=== PATIENT | female | born 1975 | race Caucasian/White ===

== ENCOUNTER 2020-04-21 03:04 | Inpatient (IN) | payer BC, OTHER ==
[~2020-04-21] VITALS: Ht 167.6 cm; Wt 75.0 kg
[2020-04-21] VITALS (17 sets, daily range): BP systolic 145–187; BP diastolic 65–109
[2020-04-21] MEDS ORDERED: ondansetron/PF 4mg/2ml inj IV ONE (03:15)
[2020-04-21] MEDS ORDERED: morphine 4 MG/ML inj SYRINge IV ONE (03:15)
[2020-04-21] MEDS ORDERED: normal saline 1000ML IV soln IVB ONE (03:15)
[2020-04-21 03:24] LABS: BASOPHILS # (AUTO) 0.1 X10'3 (0-0.2); BASOPHILS % (AUTO) 0.5 % (0-1); EOSINOPHILS # (AUTO) 0.2 X10'3 (0-0.9); EOSINOPHILS % (AUTO) 1.6 % (0-6); HEMATOCRIT 43.9 % (35.0-45.0); HEMOGLOBIN 14.9 g/dl (12.0-16.0); LYMPHOCYTES # (AUTO) 3.2 X10'3 (1.1-4.8); LYMPHOCYTES % (AUTO) 28.2 % (21-51); MEAN CORPUSCULAR HEMOGLOBIN 34.9 PG (27.0-31.0); MEAN CORPUSCULAR HGB CONC 33.9 g/dL (33.0-36.5); MEAN CORPUSCULAR VOLUME 102.9 FL (78-98); MEAN PLATELET VOLUME 7.9 FL (7.4-10.4); MONOCYTES # (AUTO) 1.2 X10'3 (0-0.9); MONOCYTES % (AUTO) 10.5 % (2-12); NEUTROPHILS # (AUTO) 6.8 X10'3 (1.8-7.7); NEUTROPHILS % (AUTO) 59.2 % (42-75); PLATELET COUNT 385 X10'3 (140-440); RED BLOOD COUNT 4.26 X10'6 (4.20-5.60); RED CELL DISTRIBUTION WIDTH 16.4 % (11.5-14.5); WHITE BLOOD COUNT 11.5 X10'3 (4.5-11.0)
[2020-04-21] MEDS ORDERED: heparin 25,000 UNIT/250ml bag 250 ML IV SCH (03:30)
[2020-04-21] MEDS ORDERED: heparin 10,000 units/1 ML INJ IV ONE ×3 (03:30→03:45)
[2020-04-21] MEDS: morphine 2 MG/ML inj. syringe IV PRN ×4 (03:34→07:31)
[2020-04-21 03:35] LABS: ALANINE AMINOTRANSFERASE 67 U/L (12-78); ALBUMIN 2.7 G/DL (3.4-5.0); ALBUMIN/GLOBULIN RATIO 0.7 (1.1-1.5); ALKALINE PHOSPHATASE 225 IU/L (46-116); ANION GAP 12 (8-16); ASPARTATE AMINO TRANSFERASE 97 U/L (10-37); BILIRUBIN,TOTAL 1.2 MG/DL (0.1-1.0); BLOOD UREA NITROGEN 2 MG/DL (7-18); BUN/CREATININE RATIO 2.9 (6.6-38.0); CALCIUM 7.9 MG/DL (8.5-10.1); CHLORIDE 104 MMOL/L (99-107); CREATININE 0.69 MG/DL (0.40-0.90); GLUCOSE 99 MG/DL (70-104); SODIUM 139 MMOL/L (135-145); TOTAL CARBON DIOXIDE 22.6 MMOL/L (24-32); TOTAL PROTEIN 6.6 G/DL (6.4-8.2); eGFR > 90 ML/MIN
[2020-04-21 03:38] LABS: PARTIAL THROMBOPLASTIN TIME 31 SECONDS (22-32); POTASSIUM 2.5 MMOL/L (3.5-5.1)
[2020-04-21] MEDS ORDERED: LORazepam 2 mg/ml vial IV ONE (03:55)
[2020-04-21] MEDS ORDERED: tPA-cathflo 2mg/2ml IV flush 4 MG in normal saline 100ml IV soln 100 ML ICATH SCH (04:30)
[2020-04-21] MEDS: heparin 1,000 UNITS/NS 500ml 500 ML IV SCH ×4 (04:30→19:00)
--- NOTE | 2020-04-21 04:54 | NUR ---
patient taken to IR
[2020-04-21] MEDS ORDERED: LIDOcaine 1%/PF 5ML 10 MG/ML VIAL ONE (05:02)
[2020-04-21] MEDS ORDERED: iohexol 300mg/ml 100ml inj. ONE (05:02)
[2020-04-21] MEDS ORDERED: heparin 1,000 UNITS/NS 500ml 500 ML ONE (05:02)
[2020-04-21] MEDS ORDERED: midazolam 2 mg/2 ml injection ONE ×2 (05:05→05:34)
[2020-04-21] MEDS ORDERED: fentaNYL/PF 50MCG/1 ML 2ML syringe ONE ×2 (05:06→05:34)
[2020-04-21] MEDS ORDERED: hydrALAZINE 20mg/ml inj. IV ONE (05:47)
[2020-04-21] MEDS ORDERED: morphine/NS 5 mg/ml CADD 100 ML IV SCH ×2 (07:15→07:20)
[2020-04-21] MEDS ORDERED: CADD PCA waste documentation MC PRN (07:25)
[2020-04-21] MEDS ORDERED: morphine/NS 5 mg/ml CADD 50 ML IV SCH (07:25)
[2020-04-21] MEDS ORDERED: naloxone 0.4 mg/ml inj IV PRN (07:25)
--- NOTE | 2020-04-21 07:45 | NUR ---
Patient with right groin sheath intact, patient very restless secondary to pain. Leg immobilizer placed on leg for safety. Orders for Morphine hr representative per Dr Hansen. given iv Morphine for pain per orders so far with no relief of pain 01/22. Left leg with absent pulses with doppler, mottled and cold. Heparin and tpa running via sheath access at ordered rates.
[2020-04-21] MEDS ORDERED: magnesium Cl slow-release 64mg tablet PO PRN (08:25)
[2020-04-21] MEDS ORDERED: magnesium 4gm in 100ml NS 100 ML IV PRN (08:25)
[2020-04-21] MEDS ORDERED: potassium Cl 20 mEq SR tablet PO PRN ×2 (08:25)
--- NOTE | 2020-04-21 08:27 | NUR ---
K level rechecked prior to replacement, returned at 3.0. Replacement per protocol per Dr Hansen
[2020-04-21] MEDS: potassium Cl 40MEQ/1/2NS 520ml 520 ML IV PRN ×2 (09:00→13:40)
[2020-04-21] MEDS: morphine/NS 5 mg/ml CADD 50 ML IV SCH ×8 (09:12→23:00)
[2020-04-21] MEDS ORDERED: LORazepam 2 mg/ml vial IV PRN (10:05)
[2020-04-21] MEDS ORDERED: haloperidol 5mg tablet PO PRN (10:05)
[2020-04-21] MEDS ORDERED: thiamine inj. 100 MG, MVI, adult No.4 with vit. K 10 ML in dextrose 5% water 500ml 500 ML IV SCH ×3 (10:05)
[2020-04-21] MEDS ORDERED: thiamine inj. 100 MG in normal saline 100ml IV soln 100 ML IV ONE (10:05)
[2020-04-21] MEDS ORDERED: haloperidol lactate 5mg/ml inj IM PRN (10:05)
[2020-04-21] MEDS: nicotine 21mg patch - 24 hr TD SCH (11:26)
[2020-04-21 11:36] LABS: HEMATOCRIT 40.9 % (35.0-45.0); MEAN CORPUSCULAR HEMOGLOBIN 35.6 PG (27.0-31.0); MEAN CORPUSCULAR HGB CONC 34.2 g/dL (33.0-36.5); MEAN CORPUSCULAR VOLUME 104.1 FL (78-98); MEAN PLATELET VOLUME 7.7 FL (7.4-10.4); PLATELET COUNT 345 X10'3 (140-440); RED BLOOD COUNT 3.93 X10'6 (4.20-5.60); RED CELL DISTRIBUTION WIDTH 16.8 % (11.5-14.5); WHITE BLOOD COUNT 11.5 X10'3 (4.5-11.0)
[2020-04-21 11:51] LABS: MAGNESIUM 1.3 MG/DL (1.5-2.4); POTASSIUM 3.9 MMOL/L (3.5-5.1)
[2020-04-21] MEDS ORDERED: NO HOME MEDS (13:05)
[2020-04-21] MEDS: folic acid 1mg/0.2ml inj IV SCH (13:34)
[2020-04-21] MEDS: tPA-cathflo 2mg/2ml IV flush 4 MG in normal saline 100ml IV soln 100 ML ICATH SCH ×2 (15:48→22:39)
[2020-04-21] MEDS: cloNIDine 0.1 mg tablet PO SCH ×2 (16:39→21:10)
--- NOTE | 2020-04-21 19:00 | NUR ---
REPORT RECEIVED FROM GLEN PRABHAKAR. PATIENT WITH SLIGT HTN, INCREASING AGITATION/RESTLESS/ ANXIOUS. MILD - MOD TREMORS OF HANDS. PATIENT IS IMPULSIVE AND DIFFICULT TO SIT STILL, STOP TOUCHING IV LINES, BENDING AT WASTE ETC ETC. CADD INSTRUCTIONS REVIEWED. PAIN APPEARS TO BE UNDER CONTROL. ETOH HISTORY - HALDOL GIVEN PER ORDER. PATIENT AGREES THAT SHE IS ANXIOUS AND RESTLESS. WILLINGLY TAKES THE HALDOL po PER ORDER. SUPPORT GIVEN. RIGHT FEM SITE IS CDI, SOFT, NO HEMATOMA. RIGHT KNEE IMMOBILIZER ON. + PALPABLE PULSE RLE. LLE BEST PULSE IS POPLITEAL WITH DOPPLER. L FOOT IS MOTTLED AND COOL. NO DISTRESS WITH BREATHING, LITTLE APPETITE - MODERATE ASSISTANCE DUE TO FLAT AND AGITATED/RESTLESS. BARELY ANY OF THE TRAY. DRINKS SPRITE WITH NO PROBLEMS. TPA IS INFUSING AT 6.25 ML/HR [0.25 MG/HR] VIA RIGHT FEM SHEATH. HEPARIN IS INFUSING 40 ML/HR [80 UNITS/HR) ALSO RIGHT SHEATH. PATIENT IS IN VIEW OF RN AT ALL TIMES. NEEDS FREQUENT REMINDING TO STOP TOUCHING/REARRANGING LINES, BENDING AT WASTE. TURNED FOR 2 RN SKIN CHECK/ CDI - UNREMARKABLE. MRSA NARES SENT TO LAB. BACK WASHED AND NEW LINEN. PATIENT WANTED TO GO BACK ON HER BACK. REFUSED TO HAVE PILLOWS PROP HER TO SIDE. NICHOLE DRAINS QS U/O, CLEAR YELLOW. ALL PROCEDURES EXPLAINED. SUPPORT GIVEN
[2020-04-21] MEDS: K and/or MAG REPLACEMENT MC SCH (20:00)
[2020-04-21 20:08] LABS: HEMATOCRIT 38.6 % (35.0-45.0); MEAN CORPUSCULAR HEMOGLOBIN 35.3 PG (27.0-31.0); MEAN CORPUSCULAR HGB CONC 33.7 g/dL (33.0-36.5); MEAN CORPUSCULAR VOLUME 104.8 FL (78-98); MEAN PLATELET VOLUME 7.6 FL (7.4-10.4); PLATELET COUNT 263 X10'3 (140-440); RED BLOOD COUNT 3.69 X10'6 (4.20-5.60); RED CELL DISTRIBUTION WIDTH 16.9 % (11.5-14.5); WHITE BLOOD COUNT 10.1 X10'3 (4.5-11.0)
[2020-04-21 20:17] LABS: MAGNESIUM 1.3 MG/DL (1.5-2.4); PHOSPHORUS 2.5 MG/DL (2.3-4.5)
[2020-04-21] MEDS ORDERED: cloNIDine 0.1 mg tablet PO SCH (21:00)
[2020-04-22] VITALS (28 sets, daily range): BP systolic 93–179; BP diastolic 57–105
[2020-04-22] MEDS: morphine/NS 5 mg/ml CADD 50 ML IV SCH ×9 (01:00→23:30)
--- NOTE | 2020-04-22 01:20 | NUR ---
CALL TO BAYRON BRYAN NP TO UPDATE RE: DBP>100 MMHG. NO ORDERS
[2020-04-22 05:28] LABS: BASOPHILS % (AUTO) 0.2 % (0-1); EOSINOPHILS # (AUTO) 0.1 X10'3 (0-0.9); HEMATOCRIT 37.7 % (35.0-45.0); HEMOGLOBIN 12.7 g/dl (12.0-16.0); LYMPHOCYTES # (AUTO) 1.1 X10'3 (1.1-4.8); LYMPHOCYTES % (AUTO) 11.2 % (21-51); MEAN CORPUSCULAR HGB CONC 33.5 g/dL (33.0-36.5); MEAN CORPUSCULAR VOLUME 104.6 FL (78-98); MEAN PLATELET VOLUME 7.6 FL (7.4-10.4); MONOCYTES # (AUTO) 0.8 X10'3 (0-0.9); MONOCYTES % (AUTO) 8.2 % (2-12); NEUTROPHILS # (AUTO) 8.1 X10'3 (1.8-7.7); NEUTROPHILS % (AUTO) 79.4 % (42-75); PLATELET COUNT 261 X10'3 (140-440); RED BLOOD COUNT 3.61 X10'6 (4.20-5.60); RED CELL DISTRIBUTION WIDTH 16.5 % (11.5-14.5); WHITE BLOOD COUNT 10.2 X10'3 (4.5-11.0)
[2020-04-22 05:29] LABS: ALBUMIN 2.2 G/DL (3.4-5.0); ANION GAP 5 (8-16); BLOOD UREA NITROGEN 1 MG/DL (7-18); BUN/CREATININE RATIO 1.9 (6.6-38.0); CALCIUM 7.5 MG/DL (8.5-10.1); CHLORIDE 107 MMOL/L (99-107); CREATININE 0.52 MG/DL (0.40-0.90); GLUCOSE 100 MG/DL (70-104); MAGNESIUM 2.5 MG/DL (1.5-2.4); POTASSIUM 4.1 MMOL/L (3.5-5.1); SODIUM 136 MMOL/L (135-145); TOTAL CARBON DIOXIDE 23.9 MMOL/L (24-32); eGFR > 90 ML/MIN
[2020-04-22 05:32] LABS: PARTIAL THROMBOPLASTIN TIME 27 SECONDS (22-32)
--- NOTE | 2020-04-22 06:30 | NUR ---
Patient in room ICU 2046. I have received report from rn and had the opportunity to ask questions and assume patient care.
--- NOTE | 2020-04-22 06:30 | NUR ---
REPORT GIVEN TO AKI JOHN. PULSES REVIEWED TOGETHER. NO DP/PT ON LLE WITH DOPPLER. + PULSE WITH DOPPLER ON L POPLITEAL. RIGHT LE PALPABLE PULSES. RIGHT FEMORAL SHEATH SITE IS CDI, NO HEMATOMA, SOFT, PATIENT IS MILDLY ANXIOUS. NERVOUS ABOUT HER 10 YEAR OLD SON. CELL PHANE AT BEDSIDE - PATIENT WILL CALL TO CLARIFY "IN A LITTLE BIT". MORPHINE CADD IN USE. TPA AND HEPARIN CONTINUE TO INFUSES.
[2020-04-22] MEDS ORDERED: heparin 1,000 UNITS/NS 500ml 500 ML IV SCH (07:10)
[2020-04-22] MEDS: cloNIDine 0.1 mg tablet PO SCH ×3 (08:00→21:00)
[2020-04-22] MEDS: multivitamins, therapeutics tablet PO SCH (08:00)
[2020-04-22] MEDS: K and/or MAG REPLACEMENT MC SCH ×2 (08:00→20:00)
[2020-04-22] MEDS: folic acid 1mg/0.2ml inj IV SCH (08:00)
[2020-04-22] MEDS: thiamine 100mg tablet PO SCH (08:00)
--- NOTE | 2020-04-22 08:25 | NUR ---
PT TO IR
[2020-04-22] MEDS ORDERED: LIDOcaine 1% 30ml preserv. free vial ONE (09:09)
[2020-04-22] MEDS ORDERED: heparin 10,000 units/1 ML INJ ONE (09:09)
--- NOTE | 2020-04-22 09:18 | NUR ---
Per Joby from IR this nurse is to call report to recovery as DR conner will be taking PT to surgery immediately and has already consulted with her in IR.
[2020-04-22] MEDS ORDERED: sevoflurane 250ml liquid IH ONE (09:30)
[2020-04-22] MEDS ORDERED: glycopyrrolate 0.2mg/ml inj ONE (09:30)
[2020-04-22] MEDS ORDERED: neostigmine methylsulfate 1 MG/ML 10ml vial ONE (09:30)
[2020-04-22] MEDS ORDERED: fentaNYL /PF 50mcg/ml 5ml ampule ONE (09:45)
[2020-04-22] MEDS ORDERED: midazolam 2 mg/2 ml injection ONE (09:45)
--- NOTE | 2020-04-22 09:48 | NUR ---
[id number] Patient brought from [facility] and taken to OR after type and screen sent. Patient has cell phone with her.
[2020-04-22] MEDS ORDERED: famotidine/PF 10 mg/ml inj IV ONE (10:00)
[2020-04-22] MEDS ORDERED: LIDOcaine 2% (20mg/ml) 5ml vial ONE (10:01)
[2020-04-22] MEDS ORDERED: propofol inj 20 ML IV ONE (10:01)
[2020-04-22] MEDS ORDERED: ceFAZolin 1000mg inj ONE ×2 (10:01)
[2020-04-22] MEDS ORDERED: rocuronium 10mg/ml inj IV ONE (10:02)
[2020-04-22] MEDS ORDERED: LIDOcaine 2% 5ml jelly ONE (10:02)
[2020-04-22] MEDS ORDERED: ondansetron/PF 4mg/2ml inj ONE (10:14)
[2020-04-22] MEDS ORDERED: dexamethasone sod phosphate 4mg/ml inj. ONE (10:14)
[2020-04-22] MEDS ORDERED: 0.9 % SODIUM CHLORIDE 10 ML VIAL ONE (10:45)
[2020-04-22] MEDS ORDERED: ePHEDrine 50MG/ML INJ. ONE (10:46)
[2020-04-22] MEDS ORDERED: heparin 1,000unit/ml 10ml vial 10 ML ONE (10:46)
[2020-04-22] MEDS ORDERED: ringers solution, lacted 1,000 ML IV SCH (11:05)
[2020-04-22] MEDS ORDERED: acetaminophen 1,000mg/100ml IV 100 ML IV PRN (11:05)
[2020-04-22] MEDS ORDERED: morphine 4 MG/ML inj SYRINge IV PRN (11:05)
[2020-04-22] MEDS ORDERED: meperidine/PF 25mg/ml syringe IV PRN ×3 (11:05)
[2020-04-22] MEDS ORDERED: proCHLORperazine 10 MG/2 ml inj IV PRN (11:05)
[2020-04-22] MEDS ORDERED: hydrALAZINE 20mg/ml inj. IV PRN (11:05)
[2020-04-22] MEDS ORDERED: morphine 2 MG/ML inj. syringe IV PRN (11:05)
[2020-04-22] MEDS ORDERED: ondansetron/PF 4mg/2ml inj IV PRN (11:05)
--- NOTE | 2020-04-22 11:42 | NUR ---
PT RECEIVED FROM OR, art line tranducing, no c/o pain, pt is with high BP
[2020-04-22] MEDS: labetalol 20mg/4ml (5mg/ml) syringe IV PRN ×2 (11:44→11:53)
--- NOTE | 2020-04-22 12:21 | NUR ---
PT has no c/o pain, pulses are present via doppler, dressing clean , dry, and intact. BP slowly coming down after 2 doses of labetolol and 1 dose of hydralazine. Will continue to monitor.
[2020-04-22] MEDS: nicotine 21mg patch - 24 hr TD SCH (14:23)
[2020-04-22] MEDS ORDERED: thiamine 100mg/ml 2ml inj. IV ONE (16:50)
[2020-04-22] MEDS ORDERED: dextrose 50%-water 50ml dispensing syringe IV PRN (16:50)
[2020-04-22] MEDS ORDERED: haloperidol lactate 5mg/ml inj IM PRN (16:50)
[2020-04-22] MEDS ORDERED: LORazepam 2 mg/ml vial IV PRN (16:50)
[2020-04-22] MEDS ORDERED: haloperidol 5mg tablet PO PRN (16:50)
--- NOTE | 2020-04-22 16:56 | NUR ---
Problems reprioritized. Patient report given, questions answered & plan of care reviewed with RN.
[2020-04-22] MEDS ORDERED: thiamine inj. 100 MG in normal saline 100ml IV soln 100 ML IV ONE (17:25)
--- NOTE | 2020-04-22 17:32 | NUR ---
Per MD, IR can DC arterial sheath. IR paged. Reported to receiving RN on surgical that PT will be delayed until sheath is removed.
--- NOTE | 2020-04-22 18:30 | NUR ---
Patient in room ICU 2046. I have received report from Marion PRABHAKAR and had the opportunity to ask questions and assume patient care.
--- NOTE | 2020-04-22 18:53 | NUR ---
R Femoral sheath pulled by IR staff, pressure held for approx 45 minutes. Hemostasis achieved. Site visualized by Hailey PRABHAKAR and medipore dressing to cover site. Patient and bedside RN given instructions for patient to remain flat for 6 hours and to not move her leg or utilize abdominal muscles. Patient educated asset protection specialist light and need to call for help if anything needed. Call light in patient hand. Patient has MUSHROOM SPAWN MAKER button within reach. Bed low/locked. Site clear upon IR staff leaving unit.
--- NOTE | 2020-04-22 23:04 | NUR ---
Patient in room ICU 2046. I have received report from Hailey PRABHAKAR and had the opportunity to ask questions and assume patient care.
--- NOTE | 2020-04-22 23:10 | NUR ---
Report called to Palma PRABHAKAR and questions answered around 2229. Pt transferred via ICU bed to room 347a where pt was transferred to hospital bed. Palma PRABHAKAR and patient lawn care worker awaiting at the bedside to help with the transfer. The right femoral dressing remained clean, dry, intact with no sign of hematoma or oozing. There was some dried blood on the surgical dressing to the left fem along with some oozing the the left lower leg surgical site which has not changed in size. The pt's feet are warm to the touch with brisk capillary refill and palpable pulses. The pt still has no sensation to touch on her left foot. Morphine CADD controlling pt's pain well.
[2020-04-23] MEDS: morphine/NS 5 mg/ml CADD 50 ML IV SCH ×12 (01:00→23:00)
[2020-04-23 05:48] LABS: BASOPHILS % (AUTO) 0.2 % (0-1); EOSINOPHILS % (AUTO) 0.2 % (0-6); HEMATOCRIT 33.9 % (35.0-45.0); HEMOGLOBIN 11.5 g/dl (12.0-16.0); LYMPHOCYTES # (AUTO) 1.8 X10'3 (1.1-4.8); LYMPHOCYTES % (AUTO) 12.7 % (21-51); MEAN CORPUSCULAR HEMOGLOBIN 35.9 PG (27.0-31.0); MEAN CORPUSCULAR HGB CONC 33.9 g/dL (33.0-36.5); MEAN PLATELET VOLUME 8.1 FL (7.4-10.4); MONOCYTES # (AUTO) 1.4 X10'3 (0-0.9); MONOCYTES % (AUTO) 9.5 % (2-12); NEUTROPHILS # (AUTO) 11.1 X10'3 (1.8-7.7); NEUTROPHILS % (AUTO) 77.4 % (42-75); PLATELET COUNT 250 X10'3 (140-440); RED CELL DISTRIBUTION WIDTH 16.5 % (11.5-14.5); WHITE BLOOD COUNT 14.4 X10'3 (4.5-11.0)
[2020-04-23 06:03] LABS: MAGNESIUM 1.9 MG/DL (1.5-2.4); POTASSIUM 4.2 MMOL/L (3.5-5.1)
--- NOTE | 2020-04-23 06:32 | NUR ---
Patient in room [facility] 347. I have received report from AKI Golden and had the opportunity to ask questions and assume patient care.
--- NOTE | 2020-04-23 06:36 | NUR ---
Problems reprioritized. Patient report given, questions answered & plan of care reviewed with Renetta PRABHAKAR.
[2020-04-23 07:00] VITALS: BP 118/64
[2020-04-23] MEDS: K and/or MAG REPLACEMENT MC SCH ×2 (07:55→20:00)
[2020-04-23] MEDS: cloNIDine 0.1 mg tablet PO SCH ×3 (08:00→21:00)
[2020-04-23] MEDS: thiamine 100mg tablet PO SCH (08:54)
[2020-04-23] MEDS: multivitamins, therapeutics tablet PO SCH (08:54)
[2020-04-23] MEDS: nicotine 21mg patch - 24 hr TD SCH (08:54)
[2020-04-23] MEDS: folic acid 1mg tablet PO SCH (10:02)
--- NOTE | 2020-04-23 10:02 | NUR ---
Dr. Mcnamara rounded and spoke w/ pt re: poc including recommending tests for hypercoagability, echo, hep gtt, anti foot drop splint, L LE drsg to be loosened, gabapentin 100mg qhs. Primary RN, Renetta, niki.
[2020-04-23] MEDS ORDERED: LORazepam 1 MG tablet PO PRN (10:05)
[2020-04-23] MEDS ORDERED: LORazepam 2 mg/ml vial IV PRN (10:05)
[2020-04-23 11:00] VITALS: BP 102/59
[2020-04-23] MEDS: apixaban 5mg tablet PO SCH ×2 (12:15→21:05)
[2020-04-23] MEDS: ondansetron/PF 4mg/2ml inj IV PRN (16:37)
[2020-04-23 18:00] VITALS: BP 118/75
--- NOTE | 2020-04-23 18:27 | NUR ---
Problems reprioritized. Patient report given, questions answered & plan of care reviewed with AKI Rivas.
--- NOTE | 2020-04-23 18:54 | NUR ---
Patient in room [facility] 347. I have received report from TOOTIE PRABHAKAR and had the opportunity to ask questions and assume patient care.
[2020-04-23] MEDS ORDERED: gabapentin 100mg capsule PO SCH (21:00)
[2020-04-24] VITALS: BP 122/75
[2020-04-24] MEDS: morphine/NS 5 mg/ml CADD 50 ML IV SCH ×12 (01:00→23:00)
--- NOTE | 2020-04-24 06:04 | NUR ---
Problems reprioritized. Patient report given, questions answered & plan of care reviewed with TOOTIE PRABHAKAR.
--- NOTE | 2020-04-24 06:13 | NUR ---
Patient in room [facility] 347. I have received report from AKI Rivas and had the opportunity to ask questions and assume patient care.
[2020-04-24 06:31] LABS: BASOPHILS % (AUTO) 0.1 % (0-1); EOSINOPHILS # (AUTO) 0.2 X10'3 (0-0.9); EOSINOPHILS % (AUTO) 1.2 % (0-6); HEMATOCRIT 32.4 % (35.0-45.0); HEMOGLOBIN 11.1 g/dl (12.0-16.0); LYMPHOCYTES # (AUTO) 1.8 X10'3 (1.1-4.8); LYMPHOCYTES % (AUTO) 14.3 % (21-51); MEAN CORPUSCULAR HEMOGLOBIN 36.3 PG (27.0-31.0); MEAN CORPUSCULAR HGB CONC 34.4 g/dL (33.0-36.5); MEAN CORPUSCULAR VOLUME 105.4 FL (78-98); MEAN PLATELET VOLUME 8.1 FL (7.4-10.4); MONOCYTES # (AUTO) 1.6 X10'3 (0-0.9); MONOCYTES % (AUTO) 12.3 % (2-12); NEUTROPHILS # (AUTO) 9.1 X10'3 (1.8-7.7); NEUTROPHILS % (AUTO) 72.1 % (42-75); PLATELET COUNT 284 X10'3 (140-440); RED BLOOD COUNT 3.07 X10'6 (4.20-5.60); RED CELL DISTRIBUTION WIDTH 16.7 % (11.5-14.5); WHITE BLOOD COUNT 12.7 X10'3 (4.5-11.0)
[2020-04-24 06:39] LABS: MAGNESIUM 1.5 MG/DL (1.5-2.4); POTASSIUM 3.9 MMOL/L (3.5-5.1)
[2020-04-24 07:00] VITALS: BP 132/77
[2020-04-24] MEDS: cloNIDine 0.1 mg tablet PO SCH (07:18)
[2020-04-24] MEDS: K and/or MAG REPLACEMENT MC SCH ×3 (07:18→20:00)
[2020-04-24] MEDS: thiamine 100mg tablet PO SCH (07:26)
[2020-04-24] MEDS: folic acid 1mg tablet PO SCH (07:26)
[2020-04-24] MEDS: apixaban 5mg tablet PO SCH ×2 (07:26→20:41)
[2020-04-24] MEDS: multivitamins, therapeutics tablet PO SCH (07:26)
[2020-04-24] MEDS: nicotine 21mg patch - 24 hr TD SCH (07:26)
[2020-04-24] MEDS ORDERED: potassium Cl 20 mEq SR tablet PO PRN (10:20)
[2020-04-24] MEDS ORDERED: magnesium 4gm in 100ml NS 100 ML IV PRN (10:20)
[2020-04-24] MEDS ORDERED: magnesium Cl slow-release 64mg tablet PO PRN (10:20)
[2020-04-24] MEDS ORDERED: potassium Cl 40MEQ/1/2NS 520ml 520 ML IV PRN (10:20)
[2020-04-24 11:00] VITALS: BP 132/86
[2020-04-24] MEDS: ondansetron/PF 4mg/2ml inj IV PRN (15:08)
[2020-04-24] MEDS ORDERED: LORazepam 2 mg/ml vial IV PRN (16:50)
[2020-04-24] MEDS ORDERED: LORazepam 1 MG tablet PO PRN (16:50)
[2020-04-24 18:00] VITALS: BP 124/77
--- NOTE | 2020-04-24 18:32 | NUR ---
Problems reprioritized. Patient report given, questions answered & plan of care reviewed with AKI Rivas.
--- NOTE | 2020-04-24 18:49 | NUR ---
Patient in room [facility] 347. I have received report from TOOTIE PRABHAKAR and had the opportunity to ask questions and assume patient care.
[2020-04-24] MEDS: gabapentin 100mg capsule PO SCH (20:41)
[2020-04-25 00:27] VITALS: BP 143/88
[2020-04-25] MEDS: morphine/NS 5 mg/ml CADD 50 ML IV SCH ×12 (01:00→23:00)
--- NOTE | 2020-04-25 06:33 | NUR ---
Problems reprioritized. Patient report given, questions answered & plan of care reviewed with GITA PRABHAKAR.
--- NOTE | 2020-04-25 06:34 | NUR ---
Problems reprioritized. Patient report given, questions answered & plan of care reviewed with RILEY PRABHAKAR.
[2020-04-25 06:46] LABS: BASOPHILS % (AUTO) 0.3 % (0-1); EOSINOPHILS # (AUTO) 0.2 X10'3 (0-0.9); EOSINOPHILS % (AUTO) 1.6 % (0-6); HEMOGLOBIN 11.2 g/dl (12.0-16.0); LYMPHOCYTES # (AUTO) 1.6 X10'3 (1.1-4.8); LYMPHOCYTES % (AUTO) 12.7 % (21-51); MEAN CORPUSCULAR HGB CONC 33.1 g/dL (33.0-36.5); MEAN CORPUSCULAR VOLUME 105.7 FL (78-98); MEAN PLATELET VOLUME 7.9 FL (7.4-10.4); MONOCYTES # (AUTO) 1.6 X10'3 (0-0.9); MONOCYTES % (AUTO) 12.4 % (2-12); NEUTROPHILS # (AUTO) 9.5 X10'3 (1.8-7.7); PLATELET COUNT 343 X10'3 (140-440); RED BLOOD COUNT 3.21 X10'6 (4.20-5.60); RED CELL DISTRIBUTION WIDTH 16.4 % (11.5-14.5)
--- NOTE | 2020-04-25 06:49 | NUR ---
Patient in room [facility] 347. I have received report from Evelyn PRABHAKAR and had the opportunity to ask questions and assume patient care.
[2020-04-25 07:00] VITALS: BP 96/58
[2020-04-25 07:02] LABS: ALANINE AMINOTRANSFERASE 141 U/L (12-78); ALBUMIN 1.9 G/DL (3.4-5.0); ALBUMIN/GLOBULIN RATIO 0.5 (1.1-1.5); ALKALINE PHOSPHATASE 199 IU/L (46-116); ANION GAP 10 (8-16); ASPARTATE AMINO TRANSFERASE 376 U/L (10-37); BILIRUBIN,TOTAL 0.7 MG/DL (0.1-1.0); BLOOD UREA NITROGEN 4 MG/DL (7-18); BUN/CREATININE RATIO 8.2 (6.6-38.0); CALCIUM 8.4 MG/DL (8.5-10.1); CHLORIDE 101 MMOL/L (99-107); CREATININE 0.49 MG/DL (0.40-0.90); GLUCOSE 60 MG/DL (70-104); MAGNESIUM 1.6 MG/DL (1.5-2.4); POTASSIUM 3.8 MMOL/L (3.5-5.1); SODIUM 136 MMOL/L (135-145); TOTAL CARBON DIOXIDE 25.5 MMOL/L (24-32); TOTAL PROTEIN 5.5 G/DL (6.4-8.2); eGFR > 90 ML/MIN
[2020-04-25] MEDS: K and/or MAG REPLACEMENT MC SCH ×4 (08:00→19:16)
[2020-04-25] MEDS: apixaban 5mg tablet PO SCH ×2 (08:04→20:36)
[2020-04-25] MEDS: thiamine 100mg tablet PO SCH (08:04)
[2020-04-25] MEDS: folic acid 1mg tablet PO SCH (08:04)
[2020-04-25] MEDS: gabapentin 100mg capsule PO SCH ×3 (08:04→20:37)
[2020-04-25] MEDS: multivitamins, therapeutics tablet PO SCH (08:04)
[2020-04-25] MEDS: nicotine 21mg patch - 24 hr TD SCH (08:05)
--- NOTE | 2020-04-25 09:59 | NUR ---
Left foot swollen and reddened on toes and skin below the toes, redness marked today to monitor for progress. Left leg elevated on a pillow.
[2020-04-25] MEDS ORDERED: LORazepam 1 MG tablet PO PRN (10:05)
[2020-04-25 11:00] VITALS: BP 143/87
--- NOTE | 2020-04-25 15:20 | NUR ---
Wound dressing on the left calf changed today. Patient gave herself a dose of Morphine from the SHEETING PULLER before and during dressing change. Moderate amount of serosanguinous drainage noted on the old dressing.Abd pad added on the dressing to absorb the drainage.
[2020-04-25 18:00] VITALS: BP 137/87
--- NOTE | 2020-04-25 18:21 | NUR ---
Problems reprioritized. Patient report given, questions answered & plan of care reviewed with Prudence RN.
--- NOTE | 2020-04-25 18:31 | NUR ---
Patient in room [facility] 347. I have received report from GITA PRABHAKAR and had the opportunity to ask questions and assume patient care.
[2020-04-26] VITALS: BP 125/79
[2020-04-26] MEDS: morphine/NS 5 mg/ml CADD 50 ML IV SCH ×12 (01:00→23:00)
--- NOTE | 2020-04-26 06:24 | NUR ---
Problems reprioritized. Patient report given, questions answered & plan of care reviewed with ALEJANDRO PRABHAKAR.
--- NOTE | 2020-04-26 06:25 | NUR ---
PATIENT DECLINED TO BE STARTED ON BOWEL PROTOCOL. EDUCATED ON THE IMPORTANCE OF BOWEL CARE.
[2020-04-26 06:26] LABS: BASOPHILS # (AUTO) 0.1 X10'3 (0-0.2); BASOPHILS % (AUTO) 0.6 % (0-1); EOSINOPHILS # (AUTO) 0.4 X10'3 (0-0.9); HEMATOCRIT 32.6 % (35.0-45.0); HEMOGLOBIN 11.1 g/dl (12.0-16.0); LYMPHOCYTES # (AUTO) 1.7 X10'3 (1.1-4.8); LYMPHOCYTES % (AUTO) 16.9 % (21-51); MEAN CORPUSCULAR HEMOGLOBIN 35.5 PG (27.0-31.0); MEAN CORPUSCULAR HGB CONC 33.9 g/dL (33.0-36.5); MEAN CORPUSCULAR VOLUME 104.6 FL (78-98); MEAN PLATELET VOLUME 7.9 FL (7.4-10.4); MONOCYTES # (AUTO) 1.6 X10'3 (0-0.9); MONOCYTES % (AUTO) 15.6 % (2-12); NEUTROPHILS # (AUTO) 6.4 X10'3 (1.8-7.7); NEUTROPHILS % (AUTO) 62.9 % (42-75); PLATELET COUNT 377 X10'3 (140-440); RED BLOOD COUNT 3.12 X10'6 (4.20-5.60); RED CELL DISTRIBUTION WIDTH 16.4 % (11.5-14.5); WHITE BLOOD COUNT 10.2 X10'3 (4.5-11.0)
[2020-04-26 06:49] LABS: ALANINE AMINOTRANSFERASE 121 U/L (12-78); ALBUMIN 1.7 G/DL (3.4-5.0); ALBUMIN/GLOBULIN RATIO 0.5 (1.1-1.5); ALKALINE PHOSPHATASE 177 IU/L (46-116); ANION GAP 4 (8-16); ASPARTATE AMINO TRANSFERASE 229 U/L (10-37); BILIRUBIN,TOTAL 0.4 MG/DL (0.1-1.0); BLOOD UREA NITROGEN 4 MG/DL (7-18); BUN/CREATININE RATIO 7.5 (6.6-38.0); CALCIUM 8.4 MG/DL (8.5-10.1); CHLORIDE 105 MMOL/L (99-107); CREATININE 0.53 MG/DL (0.40-0.90); GLUCOSE 88 MG/DL (70-104); MAGNESIUM 1.7 MG/DL (1.5-2.4); PHOSPHORUS 3.6 MG/DL (2.3-4.5); POTASSIUM 3.3 MMOL/L (3.5-5.1); SODIUM 139 MMOL/L (135-145); TOTAL CARBON DIOXIDE 29.9 MMOL/L (24-32); TOTAL PROTEIN 5.3 G/DL (6.4-8.2); eGFR > 90 ML/MIN
[2020-04-26] MEDS: apixaban 5mg tablet PO SCH ×2 (07:57→20:52)
[2020-04-26] MEDS: folic acid 1mg tablet PO SCH (07:57)
[2020-04-26] MEDS: gabapentin 100mg capsule PO SCH ×3 (07:57→20:51)
[2020-04-26] MEDS: multivitamins, therapeutics tablet PO SCH (07:57)
[2020-04-26] MEDS: nicotine 21mg patch - 24 hr TD SCH (07:57)
[2020-04-26] MEDS: thiamine 100mg tablet PO SCH (07:57)
[2020-04-26] MEDS: K and/or MAG REPLACEMENT MC SCH ×4 (08:00→20:00)
[2020-04-26 11:00] VITALS: BP 149/92
--- NOTE | 2020-04-26 13:26 | NUR ---
Patient in room [facility] 347. I have received report from ANABELL PRABHAKAR and had the opportunity to ask questions and assume patient care.
[2020-04-26 15:23] LABS: PROTEIN S, FREE 199 % (57-157); PROTEIN S, TOTAL 139 % (60-150)
[2020-04-26] MEDS: potassium Cl 20 mEq SR tablet PO PRN ×2 (15:49→21:00)
[2020-04-26] MEDS ORDERED: LORazepam 2 mg/ml vial IV PRN (16:50)
[2020-04-26] MEDS ORDERED: LORazepam 1 MG tablet PO PRN (16:50)
--- NOTE | 2020-04-26 17:00 | NUR ---
PATIENT POLITELY DECLINED WOUND CARE. SHE STATES SHE JUST CAN'T HANDLE IT TODAY. CHARGE NOTIFIED
--- NOTE | 2020-04-26 17:48 | NUR ---
Problems reprioritized. Patient report given, questions answered & plan of care reviewed with PRUDENCE RN.
[2020-04-26 18:00] VITALS: BP 112/84
--- NOTE | 2020-04-26 18:29 | NUR ---
Patient in room [facility] 347. I have received report from ALEJANDRO PRABHAKAR and had the opportunity to ask questions and assume patient care.
[2020-04-26] MEDS: magnesium hydroxide 30ml (MOM) UD suspension PO PRN (20:51)
[2020-04-26] MEDS: docusate sod 100mg capsule PO SCH (20:51)
[2020-04-27] VITALS: BP 128/83
[2020-04-27] MEDS: morphine/NS 5 mg/ml CADD 50 ML IV SCH ×12 (01:00→23:00)
[2020-04-27] MEDS: LORazepam 2 mg/ml vial IV PRN ×2 (04:24→21:07)
--- NOTE | 2020-04-27 05:41 | NUR ---
Wound care performed per wound care order and patient resting with no sign of discomfort.
--- NOTE | 2020-04-27 06:04 | NUR ---
Problems reprioritized. Patient report given, questions answered & plan of care reviewed with TOOTIE PRABHAKAR. Patient resting with no apparent distress. Wound care performed.
[2020-04-27 06:23] LABS: BASOPHILS % (AUTO) 0.4 % (0-1); EOSINOPHILS # (AUTO) 0.4 X10'3 (0-0.9); HEMATOCRIT 33.9 % (35.0-45.0); HEMOGLOBIN 11.8 g/dl (12.0-16.0); LYMPHOCYTES # (AUTO) 1.8 X10'3 (1.1-4.8); LYMPHOCYTES % (AUTO) 17.8 % (21-51); MEAN CORPUSCULAR HEMOGLOBIN 36.6 PG (27.0-31.0); MEAN CORPUSCULAR HGB CONC 34.9 g/dL (33.0-36.5); MEAN PLATELET VOLUME 8.1 FL (7.4-10.4); MONOCYTES # (AUTO) 1.5 X10'3 (0-0.9); MONOCYTES % (AUTO) 15.2 % (2-12); NEUTROPHILS # (AUTO) 6.2 X10'3 (1.8-7.7); NEUTROPHILS % (AUTO) 62.6 % (42-75); PLATELET COUNT 456 X10'3 (140-440); RED BLOOD COUNT 3.23 X10'6 (4.20-5.60); RED CELL DISTRIBUTION WIDTH 16.4 % (11.5-14.5); WHITE BLOOD COUNT 9.9 X10'3 (4.5-11.0)
--- NOTE | 2020-04-27 06:30 | NUR ---
Patient in room [facility] 340. I have received report from AKI Rivas and had the opportunity to ask questions and assume patient care.
[2020-04-27 06:33] LABS: ALANINE AMINOTRANSFERASE 118 U/L (12-78); ALBUMIN 1.9 G/DL (3.4-5.0); ALBUMIN/GLOBULIN RATIO 0.5 (1.1-1.5); ALKALINE PHOSPHATASE 190 IU/L (46-116); ANION GAP 7 (8-16); ASPARTATE AMINO TRANSFERASE 174 U/L (10-37); BILIRUBIN,TOTAL 0.5 MG/DL (0.1-1.0); BLOOD UREA NITROGEN 3 MG/DL (7-18); BUN/CREATININE RATIO 5.3 (6.6-38.0); CALCIUM 8.6 MG/DL (8.5-10.1); CHLORIDE 104 MMOL/L (99-107); CREATININE 0.57 MG/DL (0.40-0.90); GLUCOSE 97 MG/DL (70-104); MAGNESIUM 1.9 MG/DL (1.5-2.4); PHOSPHORUS 3.1 MG/DL (2.3-4.5); POTASSIUM 3.9 MMOL/L (3.5-5.1); SODIUM 137 MMOL/L (135-145); TOTAL CARBON DIOXIDE 26.1 MMOL/L (24-32); TOTAL PROTEIN 5.9 G/DL (6.4-8.2); eGFR > 90 ML/MIN
[2020-04-27 07:00] VITALS: BP 131/84
[2020-04-27] MEDS: K and/or MAG REPLACEMENT MC SCH ×3 (07:16→20:00)
[2020-04-27 08:01] LABS: TOTAL CELLS COUNTED 100
[2020-04-27 08:03] LABS: ANISOCYTOSIS 1+; PLATELET ESTIMATE INCREASED
[2020-04-27 08:04] LABS: LARGE PLATELETS FEW; SPHEROCYTES 1+
[2020-04-27] MEDS: thiamine 100mg tablet PO SCH (08:32)
[2020-04-27] MEDS: docusate sod 100mg capsule PO SCH ×2 (08:32→20:00)
[2020-04-27] MEDS: multivitamins, therapeutics tablet PO SCH (08:32)
[2020-04-27] MEDS: apixaban 5mg tablet PO SCH ×2 (08:32→19:55)
[2020-04-27] MEDS: nicotine 21mg patch - 24 hr TD SCH (08:32)
[2020-04-27] MEDS: folic acid 1mg tablet PO SCH (08:32)
[2020-04-27] MEDS: gabapentin 100mg capsule PO SCH ×3 (08:32→21:07)
[2020-04-27 11:00] VITALS: BP 129/85
--- NOTE | 2020-04-27 17:22 | NUR ---
Initial: Pt admit DX L leg ischemia s/p fasciotomy pending wound closure Monday per MD note. MCV 105 w/ hx etoh receiving thiamin, folic, MVI. PO improving to 75-100% avg regular diet past 2 days post-op. Prior 7 days constipation resolved today per EMR; likely impacted prior PO. SILVIA recommends Kurt shake BIDLD for wound healing needs post-op; notified. Will continue to monitor. Rec: 1. continue regular diet 2. kurt shake BIDLD for wound healing 3. thiamin, folic, MVI for etoh hx 4. routine bowel care 5. scaled wt this admit Addendum: 04/27/20 at [address] Amended: Links added.
[2020-04-27] MEDS: JUVEN Shake w/Arg/Glut/Ca2+Bmb (Juven 19.3gm) pkt 240ml PO SCH (17:30)
--- NOTE | 2020-04-27 18:11 | NUR ---
Problems reprioritized. Patient report given, questions answered & plan of care reviewed with AKI Stauffer.
[2020-04-27 18:40] VITALS: BP 126/81
[2020-04-28] VITALS: BP 126/85
[2020-04-28] MEDS: morphine/NS 5 mg/ml CADD 50 ML IV SCH ×12 (00:49→23:00)
[2020-04-28] MEDS: normal saline 1000ml 1,000 ML IV SCH (06:14)
--- NOTE | 2020-04-28 06:14 | NUR ---
Problems reprioritized. Patient report given, questions answered & plan of care reviewed with ALEJANDRO. Addendum: 04/28/20 at 0615 by Emil Del Rio RN Amended: Links added.
[2020-04-28 06:30] LABS: BASOPHILS % (AUTO) 0.5 % (0-1); EOSINOPHILS # (AUTO) 0.5 X10'3 (0-0.9); EOSINOPHILS % (AUTO) 4.7 % (0-6); HEMATOCRIT 33.2 % (35.0-45.0); HEMOGLOBIN 11.4 g/dl (12.0-16.0); LYMPHOCYTES # (AUTO) 1.9 X10'3 (1.1-4.8); LYMPHOCYTES % (AUTO) 18.5 % (21-51); MEAN CORPUSCULAR HEMOGLOBIN 36.1 PG (27.0-31.0); MEAN CORPUSCULAR HGB CONC 34.5 g/dL (33.0-36.5); MEAN CORPUSCULAR VOLUME 104.6 FL (78-98); MEAN PLATELET VOLUME 7.9 FL (7.4-10.4); MONOCYTES # (AUTO) 1.6 X10'3 (0-0.9); MONOCYTES % (AUTO) 15.9 % (2-12); NEUTROPHILS # (AUTO) 6.1 X10'3 (1.8-7.7); NEUTROPHILS % (AUTO) 60.4 % (42-75); PLATELET COUNT 484 X10'3 (140-440); RED BLOOD COUNT 3.18 X10'6 (4.20-5.60); RED CELL DISTRIBUTION WIDTH 16.2 % (11.5-14.5); WHITE BLOOD COUNT 10.1 X10'3 (4.5-11.0)
[2020-04-28 06:33] LABS: ALANINE AMINOTRANSFERASE 97 U/L (12-78); ALBUMIN 1.9 G/DL (3.4-5.0); ALBUMIN/GLOBULIN RATIO 0.5 (1.1-1.5); ALKALINE PHOSPHATASE 166 IU/L (46-116); ANION GAP 7 (8-16); ASPARTATE AMINO TRANSFERASE 117 U/L (10-37); BILIRUBIN,TOTAL 0.4 MG/DL (0.1-1.0); BLOOD UREA NITROGEN 4 MG/DL (7-18); CALCIUM 8.7 MG/DL (8.5-10.1); CHLORIDE 105 MMOL/L (99-107); CREATININE 0.57 MG/DL (0.40-0.90); GLUCOSE 97 MG/DL (70-104); MAGNESIUM 1.8 MG/DL (1.5-2.4); PHOSPHORUS 4.2 MG/DL (2.3-4.5); POTASSIUM 3.8 MMOL/L (3.5-5.1); SODIUM 138 MMOL/L (135-145); TOTAL CARBON DIOXIDE 26.5 MMOL/L (24-32); TOTAL PROTEIN 5.7 G/DL (6.4-8.2); eGFR > 90 ML/MIN
--- NOTE | 2020-04-28 06:34 | NUR ---
PHYSICAL THERAPY ASKED TO WORK WITH PATIENT. SHE REFUSED. PHYSICAL THERAPY STATES SHE REFUSED YESTERDAY ALSO. ADDED NON-COMPLIANCE TO Pt's CARE PLAN
--- NOTE | 2020-04-28 06:36 | NUR ---
Patient in room [facility] 340. I have received report from ROSA PRABHAKAR and had the opportunity to ask questions and assume patient care.
[2020-04-28 07:00] VITALS: BP 120/73
--- NOTE | 2020-04-28 07:42 | NUR ---
PER DR DUMONT BLOOD CLOTS IN TOES, NO SURG TO FIX. TOE HAS GOOD CIRCULATION. GIVE 0800 ELIQUIS AND THEN HOLD 1999 DOSE AND 03-29 Addendum: 04/28/20 at 0745 by Viri Gore RN ASLO HOLD 0800 03-30 DOSE PT WILL GO TO SURG THAT MORNING
[2020-04-28] MEDS: multivitamins, therapeutics tablet PO SCH (07:46)
[2020-04-28] MEDS: thiamine 100mg tablet PO SCH (07:46)
[2020-04-28] MEDS: gabapentin 100mg capsule PO SCH ×3 (07:47→20:13)
[2020-04-28] MEDS: folic acid 1mg tablet PO SCH (07:47)
[2020-04-28] MEDS: apixaban 5mg tablet PO SCH (07:47)
[2020-04-28] MEDS: docusate sod 100mg capsule PO SCH ×2 (07:47→20:00)
[2020-04-28] MEDS: nicotine 21mg patch - 24 hr TD SCH (07:49)
[2020-04-28] MEDS: K and/or MAG REPLACEMENT MC SCH ×2 (08:00→20:00)
[2020-04-28 09:26] LABS: ANISOCYTOSIS 1+; PLATELET ESTIMATE INCREASED; TOTAL CELLS COUNTED 100
[2020-04-28 09:27] LABS: LARGE PLATELETS FEW; POLYCHROMASIA FEW
[2020-04-28 11:00] VITALS: BP 135/87
[2020-04-28] MEDS: JUVEN Shake w/Arg/Glut/Ca2+Bmb (Juven 19.3gm) pkt 240ml PO SCH ×2 (12:30→17:30)
--- NOTE | 2020-04-28 16:00 | NUR ---
PT REFUSED WOUND CARE. SHE STATES NO NEED SHE HAS SURGERY TOMORROW
--- NOTE | 2020-04-28 17:47 | NUR ---
Problems reprioritized. Patient report given, questions answered & plan of care reviewed with ROSA PRABHAKAR.
[2020-04-28 18:40] VITALS: BP 125/81
[2020-04-29] VITALS (24 sets, daily range): BP systolic 98–134; BP diastolic 60–88
[2020-04-29] MEDS: morphine/NS 5 mg/ml CADD 50 ML IV SCH ×12 (01:00→23:00)
[2020-04-29] MEDS: ringers solution, lacted 1,000 ML IV SCH ×2 (04:04→13:30)
--- NOTE | 2020-04-29 06:00 | NUR ---
Patient in room [facility] 340. I have received report from AKI Stauffer and had the opportunity to ask questions and assume patient care.
[2020-04-29 06:15] LABS: PARTIAL THROMBOPLASTIN TIME 25 SECONDS (22-32)
[2020-04-29 06:16] LABS: ALANINE AMINOTRANSFERASE 85 U/L (12-78); ALBUMIN 1.8 G/DL (3.4-5.0); ALBUMIN/GLOBULIN RATIO 0.5 (1.1-1.5); ALKALINE PHOSPHATASE 139 IU/L (46-116); ANION GAP 8 (8-16); ASPARTATE AMINO TRANSFERASE 102 U/L (10-37); BILIRUBIN,TOTAL 0.4 MG/DL (0.1-1.0); BLOOD UREA NITROGEN 6 MG/DL (7-18); BUN/CREATININE RATIO 11.1 (6.6-38.0); CALCIUM 8.7 MG/DL (8.5-10.1); CHLORIDE 104 MMOL/L (99-107); CREATININE 0.54 MG/DL (0.40-0.90); GLUCOSE 96 MG/DL (70-104); MAGNESIUM 1.7 MG/DL (1.5-2.4); PHOSPHORUS 4.5 MG/DL (2.3-4.5); POTASSIUM 3.8 MMOL/L (3.5-5.1); SODIUM 138 MMOL/L (135-145); TOTAL CARBON DIOXIDE 25.6 MMOL/L (24-32); TOTAL PROTEIN 5.5 G/DL (6.4-8.2); eGFR > 90 ML/MIN
--- NOTE | 2020-04-29 06:25 | NUR ---
Problems reprioritized. Patient report given, questions answered & plan of care reviewed with AIYANA. Addendum: 04/29/20 at 0625 by Emil Del Rio RN Amended: Links added.
[2020-04-29 06:55] LABS: BASOPHILS # (AUTO) 0.1 X10'3 (0-0.2); BASOPHILS % (AUTO) 0.7 % (0-1); EOSINOPHILS # (AUTO) 0.5 X10'3 (0-0.9); EOSINOPHILS % (AUTO) 4.2 % (0-6); HEMATOCRIT 33.1 % (35.0-45.0); HEMOGLOBIN 11.3 g/dl (12.0-16.0); LYMPHOCYTES # (AUTO) 2.6 X10'3 (1.1-4.8); LYMPHOCYTES % (AUTO) 23.3 % (21-51); MEAN CORPUSCULAR HEMOGLOBIN 35.8 PG (27.0-31.0); MEAN CORPUSCULAR HGB CONC 34.1 g/dL (33.0-36.5); MEAN CORPUSCULAR VOLUME 105.1 FL (78-98); MEAN PLATELET VOLUME 7.9 FL (7.4-10.4); MONOCYTES # (AUTO) 1.6 X10'3 (0-0.9); MONOCYTES % (AUTO) 14.7 % (2-12); NEUTROPHILS # (AUTO) 6.3 X10'3 (1.8-7.7); NEUTROPHILS % (AUTO) 57.1 % (42-75); PLATELET COUNT 552 X10'3 (140-440); RED BLOOD COUNT 3.15 X10'6 (4.20-5.60); RED CELL DISTRIBUTION WIDTH 16.3 % (11.5-14.5)
[2020-04-29] MEDS: K and/or MAG REPLACEMENT MC SCH ×2 (08:00→20:00)
[2020-04-29] MEDS: nicotine 21mg patch - 24 hr TD SCH (08:04)
[2020-04-29] MEDS: gabapentin 100mg capsule PO SCH ×3 (08:46→20:31)
[2020-04-29] MEDS: folic acid 1mg tablet PO SCH (08:47)
[2020-04-29] MEDS: thiamine 100mg tablet PO SCH (08:47)
[2020-04-29] MEDS: docusate sod 100mg capsule PO SCH ×2 (08:47→20:35)
[2020-04-29] MEDS: multivitamins, therapeutics tablet PO SCH (08:47)
[2020-04-29] MEDS: LORazepam 2 mg/ml vial IV PRN (08:56)
[2020-04-29] MEDS: JUVEN Shake w/Arg/Glut/Ca2+Bmb (Juven 19.3gm) pkt 240ml PO SCH ×2 (12:30→16:28)
[2020-04-29] MEDS ORDERED: ceFAZolin 2gm in dextrose, iso 50 ML IV ONE (13:10)
--- NOTE | 2020-04-29 16:16 | NUR ---
Report called to AKI Cage
[2020-04-29] MEDS ORDERED: sevoflurane 250ml liquid IH ONE (17:26)
[2020-04-29] MEDS ORDERED: fentaNYL /PF 50mcg/ml 5ml ampule ONE (17:30)
[2020-04-29] MEDS ORDERED: midazolam 2 mg/2 ml injection ONE (17:30)
[2020-04-29] MEDS ORDERED: famotidine/PF 10 mg/ml inj IV ONE (17:33)
[2020-04-29] MEDS ORDERED: LIDOcaine 2% (20mg/ml) 5ml vial ONE (17:45)
[2020-04-29] MEDS ORDERED: propofol inj 20 ML IV ONE (17:45)
--- NOTE | 2020-04-29 17:45 | NUR ---
Fasciotomy closure today, woundcare held until after procedure.
--- NOTE | 2020-04-29 18:11 | NUR ---
Problems reprioritized. Patient report given, questions answered & plan of care reviewed with AKI Lazo.
[2020-04-29] MEDS ORDERED: ePHEDrine 50MG/ML INJ. ONE (18:12)
[2020-04-29] MEDS ORDERED: dexamethasone sod phosphate 4mg/ml inj. ONE (18:12)
[2020-04-29] MEDS ORDERED: ondansetron/PF 4mg/2ml inj ONE (18:12)
--- NOTE | 2020-04-29 18:37 | NUR ---
Received from OR via BED, accompanied by Anesthesiologist DR GARCIA and report given by Anesthesiologist. PT DROWSY, DENIES PAIN. LEFT LEG W/UT WRAP COVERING INCISION/DRSG CDI, LEFT ANKLE FOOT SWOLLEN, PITTING EDEMA 2+, NICHOLE CATHETER TO GRAVITY DRAINAGE W/YELLOW URINE IN DRAINAGE BAG. Addendum: 04/29/20 at 1905 by Madeleine Bonner RN Amended: Links added.
--- NOTE | 2020-04-29 18:38 | NUR ---
Patient in room [facility] 340. I have received report from AKI Morse and had the opportunity to ask questions and assume patient care. Addendum: 04/29/20 at 1850 by Clifton Anguiano RN Patient is in the recovery room at this time
[2020-04-29] MEDS ORDERED: meperidine/PF 25mg/ml syringe ONE (18:45)
[2020-04-29] MEDS ORDERED: hydrALAZINE 20mg/ml inj. IV PRN (18:55)
[2020-04-29] MEDS ORDERED: morphine 2 MG/ML inj. syringe IV PRN (18:55)
[2020-04-29] MEDS ORDERED: ringers solution, lacted 1,000 ML IV SCH (18:55)
[2020-04-29] MEDS ORDERED: labetalol 20mg/4ml (5mg/ml) syringe IV PRN (18:55)
[2020-04-29] MEDS ORDERED: acetaminophen 1,000mg/100ml IV 100 ML IV PRN (18:55)
[2020-04-29] MEDS ORDERED: meperidine/PF 25mg/ml syringe IV PRN ×2 (18:55)
[2020-04-29] MEDS ORDERED: ondansetron/PF 4mg/2ml inj IV PRN (18:55)
[2020-04-29] MEDS ORDERED: proCHLORperazine 10 MG/2 ml inj IV PRN (18:55)
[2020-04-29] MEDS ORDERED: morphine 4 MG/ML inj SYRINge IV PRN (18:55)
[2020-04-29] MEDS: meperidine/PF 25mg/ml syringe IV PRN ×2 (19:23→19:40)
--- NOTE | 2020-04-29 20:05 | NUR ---
Patient just came back from recovery. Patient is ALOx4, and on telephone.
--- NOTE | 2020-04-29 20:07 | NUR ---
Report called to receiving nurse. Transferred via BED NO Belongings EXCEPT OF UPPER DENTURE SENT W/PT TO ROOM 340A. BLL, CALL LIGHT GIVEN, SIDE RAILS UP X 2, PT OREINTED TO SELF AND SAFETY, RECEIVING RN AWARE OF PTS ARRIVAL. Special Issues communicated to receiving nurse. YES. Addendum: 04/29/20 at 2017 by Madeleine Bonner RN Amended: Links added.
[2020-04-29] MEDS: normal saline 1000ml 1,000 ML IV SCH (20:20)
[2020-04-29] MEDS: apixaban 5mg tablet PO SCH (20:32)
[2020-04-30] MEDS: morphine/NS 5 mg/ml CADD 50 ML IV SCH ×7 (01:00→13:00)
[2020-04-30] MEDS: normal saline 1000ml 1,000 ML IV SCH ×4 (01:45→20:37)
[2020-04-30 04:32] VITALS: BP 103/66
--- NOTE | 2020-04-30 06:00 | NUR ---
Patient in room [facility] 340. I have received report from AKI Lazo and had the opportunity to ask questions and assume patient care.
--- NOTE | 2020-04-30 06:09 | NUR ---
Problems reprioritized. Patient report given, questions answered & plan of care reviewed with AKI Morse.
[2020-04-30] MEDS: nicotine 21mg patch - 24 hr TD SCH (07:40)
[2020-04-30] MEDS: folic acid 1mg tablet PO SCH (07:41)
[2020-04-30] MEDS: docusate sod 100mg capsule PO SCH ×2 (07:41→20:27)
[2020-04-30] MEDS: gabapentin 100mg capsule PO SCH ×3 (07:41→20:27)
[2020-04-30] MEDS: multivitamins, therapeutics tablet PO SCH (07:41)
[2020-04-30] MEDS: apixaban 5mg tablet PO SCH ×2 (07:41→20:27)
[2020-04-30] MEDS: thiamine 100mg tablet PO SCH (07:41)
[2020-04-30 08:00] VITALS: BP 108/70
[2020-04-30] MEDS: K and/or MAG REPLACEMENT MC SCH ×2 (08:00→20:00)
[2020-04-30 11:00] VITALS: BP 130/80
[2020-04-30] MEDS: JUVEN Shake w/Arg/Glut/Ca2+Bmb (Juven 19.3gm) pkt 240ml PO SCH ×2 (12:30→17:30)
--- NOTE | 2020-04-30 14:30 | NUR ---
PER MD Allred, leave dressing in place for 3 days, may shower after day three.
[2020-04-30] MEDS: oxyCODONE/APAP 5-325mg tablet PO PRN ×2 (15:42→20:27)
--- NOTE | 2020-04-30 18:14 | NUR ---
Patient in room [facility] 340. I have received report from SEMAJ PRABHAKAR and had the opportunity to ask questions and assume patient care.
--- NOTE | 2020-04-30 18:23 | NUR ---
Problems reprioritized. Patient report given, questions answered & plan of care reviewed with AKI Rivas.
[2020-04-30 20:00] VITALS: BP 130/86
[2020-05-01] VITALS: BP 126/76
[2020-05-01] MEDS: oxyCODONE/APAP 5-325mg tablet PO PRN ×3 (04:49→14:31)
[2020-05-01] MEDS: normal saline 1000ml 1,000 ML IV SCH (04:54)
--- NOTE | 2020-05-01 06:16 | NUR ---
Problems reprioritized. Patient report given, questions answered & plan of care reviewed with GABRIEL PRABHAKAR.
--- NOTE | 2020-05-01 06:25 | NUR ---
Patient in room [facility] 340. I have received report from AKI Rivas and had the opportunity to ask questions and assume patient care.
[2020-05-01 08:00] VITALS: BP 133/56
[2020-05-01] MEDS: gabapentin 100mg capsule PO SCH ×2 (08:00→14:30)
[2020-05-01] MEDS: K and/or MAG REPLACEMENT MC SCH (08:00)
[2020-05-01] MEDS: nicotine 21mg patch - 24 hr TD SCH (08:00)
[2020-05-01] MEDS: docusate sod 100mg capsule PO SCH (08:01)
[2020-05-01] MEDS: apixaban 5mg tablet PO SCH (08:01)
[2020-05-01] MEDS: folic acid 1mg tablet PO SCH (08:01)
[2020-05-01] MEDS: multivitamins, therapeutics tablet PO SCH (08:01)
[2020-05-01] MEDS: thiamine 100mg tablet PO SCH (08:01)
--- NOTE | 2020-05-01 10:47 | NUR ---
Reassessment: Pt s/p wound closure 04/29 per MD note. PO intake fluctuates with average 75% PO intake down to average 50% PO intake 04/30; pending documentation of PO intake for today. Pt to be getting Kurt shake BIDLD for additional kcal and amino acids for wound healing however noted that pt hasn't been receiving it d/t dietary not providing ONS. RD f/u with dietary, pt to begin receiving ONS at lunch today. LBM 04/30, documented as moderate in size. Will continue to follow and monitor need for further nutrition intervention. Rec: 1. Continue regular diet 2. Kurt shake BIDLD for wound healing 3. Thiamine, folic, and MVI for EtOH hx and wound healing needs 4. Routine bowel care 5. Scaled wt this admit Addendum: 05/01/20 at [address] Amended: Links added.
[2020-05-01] MEDS: JUVEN Shake w/Arg/Glut/Ca2+Bmb (Juven 19.3gm) pkt 240ml PO SCH (12:30)
[2020-05-01] MEDS ORDERED: HYDR-4383 PO (13:35)
[2020-05-01] MEDS ORDERED: NICO-687 TD (13:35)
[2020-05-01] MEDS ORDERED: APIX5TAB3 PO (13:35)
[2020-05-01] MEDS ORDERED: GABA300C PO (13:35)
[2020-05-01] MEDS ORDERED: ASPI-611 PO (13:35)
[2020-05-01] MEDS: magnesium hydroxide 30ml (MOM) UD suspension PO PRN (14:33)
--- NOTE | 2020-05-01 17:30 | NUR ---
Pt D/C'd home in stable condition. W/C provided prior discharge. medication and follow up instructions given to pt. Pt was escorted on w/c to main lobby. Left the hospital via private vehicle accompanied by family member.
== END 2020-05-01 17:15 | disposition home or self-care (01) | DRG 983 ==
LOC: ER 03:06 → ICU 2S 05:32 → UNDOADMIN 05:32 → SUR 3N 04-22 23:05
PROVIDERS: ADMIT Internal Medicine Critical Care Medicine; ATTEND Internal Medicine Critical Care Medicine
PROC: 3E03317 Introduction of Other Thrombolytic into Peripheral Vein, Percutaneous Approach (ICD-10-PCS; 2020-04-21)
PROC: B54MZZA Ultrasonography of Right Upper Extremity Veins, Guidance (ICD-10-PCS; 2020-04-21)
PROC: 0KNT0ZZ Release Left Lower Leg Muscle, Open Approach (ICD-10-PCS; 2020-04-22)
PROC: 0KNT0ZZ Release Left Lower Leg Muscle, Open Approach (ICD-10-PCS; 2020-04-22)
PROC: 0KNT0ZZ Release Left Lower Leg Muscle, Open Approach (ICD-10-PCS; 2020-04-22)
PROC: 0KNT0ZZ Release Left Lower Leg Muscle, Open Approach (ICD-10-PCS; principal; 2020-04-22 09:42)
DX: I99.8 Other disorder of circulatory system (principal); F17.200 Nicotine dependence, unspecified, uncomplicated; Z79.899 Other long term (current) drug therapy; Z20.828 Contact with and (suspected) exposure to other viral communicable diseases
CPT/HCPCS: 36246; 93306; 96374; 96375; 99285; Z7506; Z7508; 36415; 37211; 37214; 75710; 76937; 80048; 80053; 81479; 82607; 82948; 83735; 83891; 83894; 83898; 84100; 84132; 84443; 85007; 85025; 85027; 85303; 85305; 85306; 85384; 85610; 85730; 86885; 86900; 86901; 87081; 87635; 93005; 93926; 97110; 97116; 97161; 97530; 97535; 99152; 99153; A4618; A6223; A6253; A6446; A6449; A7000; C1729; C1751; C1757; C1769; C1894; C9803; G0378; J0131; J0360; J0690; J1100; J1644; J2001; J2060; J2175; J2250; J2270; J2405; J2704; J2710; J2997; J3010; J3411; J3475; J3480; J3490; J7030; J7040; J7060; J7120; Q9967

== ENCOUNTER 2020-05-05 09:16 | Outpatient (CLI) | payer BC ==
[~2020-05-05 09:16] MED LIST: APIX5TAB3 PO; ASPI-611 PO; GABA300C PO; HYDR-4383 PO; NICO-687 TD
== END 2020-05-05 23:59 | disposition home or self-care (01) ==
LOC: WOUND CARE 09:16 → EDSTATUS 10:00 → WOUND CARE 23:59
PROVIDERS: ATTEND Nurse Practitioner
DX: T81.89XA Other complications of procedures, not elsewhere classified, initial encounter (principal); F41.9 Anxiety disorder, unspecified; F17.200 Nicotine dependence, unspecified, uncomplicated; Z79.899 Other long term (current) drug therapy; Y83.8 Other surgical procedures as the cause of abnormal reaction of the patient, or of later complication, without mention of misadventure at the time of the procedure; Y92.238 Other place in hospital as the place of occurrence of the external cause
CPT/HCPCS: G0463

== ENCOUNTER 2020-05-12 11:30 | Outpatient (CLI) | payer BC | END 2020-05-12 23:59 | disposition home or self-care (01) | LOC: WOUND CARE 11:30 | PROVIDERS: ATTEND Nurse Practitioner Family | DX: T81.89XD Other complications of procedures, not elsewhere classified, subsequent encounter (principal); I96 Gangrene, not elsewhere classified; F41.9 Anxiety disorder, unspecified; F17.200 Nicotine dependence, unspecified, uncomplicated; Z79.899 Other long term (current) drug therapy; Y83.8 Other surgical procedures as the cause of abnormal reaction of the patient, or of later complication, without mention of misadventure at the time of the procedure | CPT/HCPCS: G0463 ==